=== PATIENT | female | born 1995 | race African-American/Black ===

== ENCOUNTER 2017-02-15 18:14 | Emergency (ER) | payer MEDICAID ==
[~2017-02-15] VITALS: Ht 167.6 cm; Wt 115.0 kg
[~2017-02-15 18:14] MED LIST: ZITH250T PO
[2017-02-15 18:15] VITALS: BP 139/92; PULSE 78; RESP 15; TEMP 97.9; O2SAT 100
[2017-02-15] MEDS ORDERED: metroNIDAZOLE 500 MG TAB PO ONE (21:00)
[2017-02-15] MEDS ORDERED: METR-1 PO (21:02)
--- NOTE | 2017-02-15 21:03 | PD ---
HPI Chief Complaint: Chief Dietitian Problem/Complaint Time Seen by Provider: 20:47 Travel History International Travel<30 days: No Contact w/Intl Traveler<30days: No Traveled to known affect area: No History of Present Illness HPI 22-year-old female arrives describing vaginal discharge with foul odor and pruritus. She states she has one sexual partner and is monogamous. He does not believe she did have an STD. She's had no fever nausea vomiting. There's been no abnormal vaginal bleeding. Last menstruation is quite irregular for the patient, also normal for her. No fever. No abdominal pain. Location . Severity moderate. Duration about 4 days. PFSH Past Medical History ?: Not Social History Tobacco Use: No Allergies-Medications (Allergen,Severity, Reaction): Coded Allergies: No Known Allergies (Unverified , 12/06/15) Reported Meds & Prescriptions Reported Meds & Active Scripts Active Flagyl (Metronidazole) 500 Mg Tab 500 Mg PO BID Zithromax Z-Jac (Azithromycin) 250 Mg Tab 250 Mg PO DIRECTED 5 Days 500 MG (2 TABLETS) PO ON DAY 1, THEN 250 MG (1 TABLET) PO ON DAYS 2 TO 5. Review of Systems Except as stated in HPI: all other systems reviewed are Neg Physical Exam Narrative GENERAL: Pleasant 22 yo F, NAD, BMI 41 SKIN: Warm and dry. HEAD: Atraumatic. Normocephalic. EYES: Pupils equal and round. No scleral icterus. No injection or drainage. ENT: No nasal bleeding or discharge. Mucous membranes pink and moist. NECK: Trachea midline. No JVD. CARDIOVASCULAR: Regular rate and rhythm. RESPIRATORY: No accessory muscle use. Clear to auscultation. Breath sounds equal bilaterally. GASTROINTESTINAL: Abdomen soft, non-tender, nondistended. Hepatic and splenic margins not palpable. MUSCULOSKELETAL: Extremities without clubbing, cyanosis, or edema. No obvious deformities. NEUROLOGICAL: Awake and alert. No obvious cranial nerve deficits. Motor grossly within normal limits. Five out of 5 muscle strength in the arms and legs. Normal speech. PSYCHIATRIC: Appropriate mood and affect; insight and judgment normal. Data Data Last Documented VS Vital Signs Date Time Temp Pulse Resp B/P Pulse Ox O2 Delivery O2 Flow Rate FiO2 02/15/17 18:15 97.9 78 15 139/92 100 VS reviewed Orders Ed Urine Pregnancytest Poc (02/15/17 20:47) Metronidazole (Flagyl) (02/15/17 21:00) [facility] Medical Decision Making Medical Screen Exam Complete: Yes Emergency Medical Condition: Yes Medical Record Reviewed: Yes Differential Diagnosis IUP, UTI, ectopic , ov torsion, appendicitis, TOA, cervicitis, BV, Trichomoniasis, ov cyst, hernia, mittelschmerz, pain from menstruation Narrative Course POC U Preg: negative Pt prefers to exam. Empiric coverage and its risks discussed with patient; she prefers empiric coverage. Return precautions discussed. Flagyl script. Pt ready for discharge. Diagnosis Primary Impression: Vaginal discharge Referrals: Essence Gomez MD call for appointment Additional Instructions: You have a choice when it comes to health care, and we are glad that you chose [facility]. Hopefully, we have met your expectations on today's visit. You are welcome to return to [facility] at any time, as we are committed to meeting the health care needs of our community. Med/Other Pt SpecificInfo: Prescription(s) given Scripts Metronidazole (Flagyl)500 Mg [id number] Mg PO BID #14 TAB Ref 0 Prov:Ran Guerra MD 02/15/17 Disposition: 01 DISCHARGE HOME Condition: Stable Ran Guerra MD February 15, 2017 21:02
== END 2017-02-15 22:35 | disposition home or self-care (01) ==
LOC: NEPD 18:14
DX: N89.8 Other specified noninflammatory disorders of vagina (principal)
CPT/HCPCS: 84703; 99283

== ENCOUNTER 2017-06-01 21:28 | Emergency (ER) | payer MEDICAID ==
[~2017-06-01] VITALS: Ht 167.6 cm; Wt 110.0 kg
[~2017-06-01 21:28] MED LIST changes: +METR-1 PO
[2017-06-01 21:31] VITALS: BP 136/70; PULSE 90; RESP 16; TEMP 98; O2SAT 99
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
[2017-06-01] MEDS ORDERED: CEPHALEXIN MONOHYDRATE 500 MG CAP PO ONE (22:15)
[2017-06-01] MEDS ORDERED: ACETAMINOPHEN/CODEINE 300 MG/30 MG TAB PO ONE (22:15)
[2017-06-01] MEDS ORDERED: TETANUS/DIPHTHERIA TOXOID ADULT 0.5 ML VIAL IM ONE (22:15)
--- NOTE | 2017-06-01 22:46 | RADRPT ---
EXAM DATE/TIME: 06/01/2017 22:23 [facility] COMPARISON: No previous studies available for comparison. INDICATIONS : Patient scraped foot last night. Patient has laceration on plantar surface of 3rd digit, right foot, tuft. MEDICAL HISTORY : None. SURGICAL HISTORY : None. ENCOUNTER: Initial ACUITY: 1 day PAIN SCORE: 6/10 LOCATION: Right foot, 3rd digit. FINDINGS: Examination of the third digit of the right foot demonstrates no evidence of fracture or dislocation. No radiopaque foreign bodies are seen. The soft tissues are intact. CONCLUSION: Radiographic appearance of the right third toe within normal limits. No fracture, subluxation or radi opaque foreign body seen. Brad Pratt MD on June 01, 2017 at 22:44 Board Certified Radiologist. This report was verified electronically.
[2017-06-01] MEDS ORDERED: CEPH-460 PO (22:54)
== END 2017-06-01 23:33 | disposition home or self-care (01) ==
LOC: NEPD 21:28
DX: S91.114A Laceration without foreign body of right lesser toe(s) without damage to nail, initial encounter (principal); X58.XXXA Exposure to other specified factors, initial encounter; Z23 Encounter for immunization
CPT/HCPCS: 73660; 90471; 90714

== ENCOUNTER 2017-12-02 20:08 | Emergency (ER) | payer MEDICAID ==
[~2017-12-02] VITALS: Ht 167.6 cm; Wt 125.0 kg
[~2017-12-02 20:08] MED LIST changes: +CEPH-460 PO
[2017-12-02 20:10] VITALS: BP 119/78; PULSE 82; RESP 16; TEMP 98.7; O2SAT 99
--- NOTE | 2017-12-02 20:55 | PD ---
HPI Chief Complaint: ENT Complaint Time Seen by Provider: 20:36 Travel History International Travel<30 days: No Contact w/Intl Traveler<30days: No Traveled to known affect area: No History of Present Illness HPI 22-year-old female presents emergency department with recurrent tonsillitis. Patient states he gets tonsillitis frequently typically treated with amoxicillin with good resolution. She is has needed steroids in the past as well due to the swelling. She states this started 2 days ago and is worsening today. She has difficulty swallowing due to pain, but no difficulty breathing. Patient has not seen an ENT for discussion of tonsil removal. She denies any fever at this time. Her throat pain is about a 7 out of 10. She has no known drug allergies. [facility] Past Medical History Medical History: Denies Significant Hx Diminished Hearing: No Tetanus Vaccination: Unknown ?: Not LMP: 11/13/2017 Menopausal: No : 0 Para: 0 Miscarriage: 0 : 0 Ectopic : No Ovarian Cysts: No Dilation and Curettage (D&C): No Tubal Ligation: No Past Surgical History Surgical History: No Previous Surgery Section: No Hysterectomy: No Social History Alcohol Use: Yes (rare) Tobacco Use: No Substance Use: No Allergies-Medications (Allergen,Severity, Reaction): Coded Allergies: No Known Allergies (Unverified Adverse Reaction, Unknown, 12/02/17) Reported Meds & Prescriptions Reported Meds & Active Scripts Active Prednisone 20 Mg Tab 20 Mg PO DAILY 5 Days Augmentin (Amoxicillin-Clavulanate) 875-125 Mg Tab 1 Tab PO BID 10 Days Review of Systems Except as stated in HPI: all other systems reviewed are Neg General / Constitutional: No: Fever Eyes: No: Visual changes HENT: Positive: Sore Throat, No: Headaches, Vertigo, Lightheadedness, Rhinitis , Rhinorrhea, Congestion, Nosebleed, Neck Stiffness, Neck Pain, Dental Difficulties, Earache Cardiovascular: No: Chest Pain or Discomfort Respiratory: No: Shortness of Breath Gastrointestinal: No: Abdominal Pain Genitourinary: No: Dysuria Musculoskeletal: No: Pain Skin: No Rash Neurologic: No: Weakness Psychiatric: No: Depression Endocrine: No: Polydipsia Hematologic/Lymphatic: No: Easy Bruising Physical Exam Narrative GENERAL: Patient appears in no obvious distress per SKIN: Warm and dry. Normal color. Normal turgor. HEAD: Atraumatic. Normocephalic. EYES: Pupils equal and round. No scleral icterus. No injection or drainage. ENT: No nasal bleeding or discharge. Mucous membranes pink and moist. Patient has bilateral hypertrophic tonsils with exudate present. Uvula is midline. Airway is intact. TMs are clear bilaterally. Voice is boggy. No sinus tenderness to palpation or percussion NECK: Trachea midline. Supple with mild to moderate bilateral anterior lymphadenopathy which is moderately tender CARDIOVASCULAR: Regular rate and rhythm. RESPIRATORY: No accessory muscle use. Clear to auscultation. Breath sounds equal bilaterally. GASTROINTESTINAL: Abdomen soft, non-tender, nondistended. Hepatic and splenic margins not palpable. MUSCULOSKELETAL: Extremities without clubbing, cyanosis, or edema. No obvious deformities. NEUROLOGICAL: Awake and alert. No obvious cranial nerve deficits. Motor grossly within normal limits. Five out of 5 muscle strength in the arms and legs. Normal speech. PSYCHIATRIC: Appropriate mood and affect; insight and judgment normal. Data Data Last Documented VS Vital Signs Date Time Temp Pulse Resp B/P (MAP) Pulse Ox O2 Delivery O2 Flow Rate FiO2 12/02/17 20:10 98.7 82 16 119/78 (92) 99 Room Air Orders Orders Amoxicil-Clavulanate (Augmentin) (12/02/17 21:00) Prednisone (Deltasone) (12/02/17 21:00) Group A Rapid Strep Screen (12/02/17 20:51) Strep Culture (Group A) (12/02/17 20:55) [facility] Medical Decision Making Medical Screen Exam Complete: Yes Emergency Medical Condition: Yes Medical Record Reviewed: Yes Differential Diagnosis Recurrent tonsillitis peritonsillar abscess. Mononucleosis. Strep pharyngitis Narrative Course Rapid strep was ordered. Patient is given 40 mg prednisone p.o. Patient is given Augmentin 875 p.o. now Rapid strep is negative. Patient is continued on Augmentin 875 twice daily 10 days. Patient is also continued on prednisone 20 mg daily for the next 5 days. Patient can take Tylenol as needed as well for pain. Patient is referred to Dr. Garcia, the ENT operational meteorologist. She would probably benefit from tonsillectomy. Patient can return to the emergency department if symptoms are not improving or worsening per Diagnosis Primary Impression: Recurrent acute tonsillitis Referrals: Jake Garcia MD Patient Instructions: General Instructions Additional Instructions: Patient is given 40 mg prednisone p.o. Patient is given Augmentin 875 p.o. now Rapid strep is negative. Patient is continued on Augmentin 875 twice daily 10 days. Patient is also continued on prednisone 20 mg daily for the next 5 days. Patient can take Tylenol as needed as well for pain. Patient is referred to Dr. Garcia, the ENT operational meteorologist. She would probably benefit from tonsillectomy. Patient can return to the emergency department if symptoms are not improving or worsening per Med/Other Pt SpecificInfo: Prescription(s) given Scripts Prednisone (Prednisone) 20 Mg Tab 20 MG PO DAILY for 5 Days, #5 TAB 0 Refills Prov: Chente Chan MD 12/02/17 Amoxicillin-Clavulanate (Augmentin) 875-125 Mg Tab 1 TAB PO BID for Infection for 10 Days, #20 TAB 0 Refills Prov: Chente Chan MD 12/02/17 Disposition: 01 DISCHARGE HOME Condition: Stable Dheeraj Tovar Dec 02, 2017 20:55
[2017-12-02] MEDS ORDERED: predniSONE 20 MG TAB PO ONE (21:00)
[2017-12-02] MEDS ORDERED: AMOXICILLIN/CLAVULANATE K 875 MG TAB PO ONE (21:00)
[2017-12-02] MEDS ORDERED: PRED20 PO (21:37)
[2017-12-02] MEDS ORDERED: AUGM875T3 PO (21:37)
== END 2017-12-02 22:20 | disposition home or self-care (01) ==
LOC: NEPD 20:08
DX: J03.91 Acute recurrent tonsillitis, unspecified (principal)
CPT/HCPCS: 87081; 87880; 99283; J7512